=== PATIENT | male | born 1940 | race Caucasian/White ===

== ENCOUNTER → 2025-04-07 19:59 | Outpatient (CLI) | payer MEDICARE, SELFPAY ==
--- OUTSIDE RECORDS SUMMARY | 2025-04-07 20:04 | XMS_ITS | Data Portability ---
Author Organization [facility] Address [address] [place] [id number] Assessment No assessment recorded. Plan of Treatment Reminders Order Date Submit Date Provider Last Modified By Organization Details Last Modified Time Details Appointments None recorded. Lab None recorded. Referral None recorded. Procedures colonoscop y procedure (PROC) 2024 025 [facility] [address] [place] [address] [place], [address], 10:08:31 Surgeries None recorded. Imaging None recorded. Medication Orders Miralax 17 gram/dose oral powder 2024 025 [facility] Not available 09:53:50 Dulcolax (bisacodyl ) 5 mg tablet,del ayed release 2024 025 [facility] Not available 09:53:50 Patient TargetsNo targets recorded. Patient InstructionsNo instructions recorded. Reason for Referral None Reported. Results Created Date Observation Date Name Description Value Unit Range Abnormal Flag Note LastModifiedBy Organization Detail LastModifiedTime Result Notes None recorded. Problems Name Problem SNOMED Code Status Onset Date Resolution Date Notes Provider Name and Address Organization Details Recorded Time Colorectal cancer detected by DNA-based stool screening 841057341 Active 2024 Mikaela Singh NP [address], [address], [place], [address], [facility] & [place] 5 09:50:54 Chronic idiopathic constipation 94349802 Active 2024 Mikaela Singh NP [address], [address], [place], [address], [place] - [facility] - [place] & [place] 09:51:20 Gastroesophage al reflux disease 742569326 Active 2024 Mikaela Singh NP [address], [address], [place], [address], [place] - [facility] - [place] & [place] 09:51:31 Problem Notes None recorded. Procedures Surgical History Date Name Laterality Status Provider Name and Address Organization Details Recorded Time 11/05/19 Colonoscopy completed Frida Allen [place] - [facility] - [place] & [place] 11/25/2024 12:19:20 procedure on shoulder completed Marietta Monson [place] - [facility] - [place] & [place] 08/26/2024 14:25:00 appendectomy completed Marietta Josseline [place] - [facility] - [place] & [place] 08/26/2024 14:25:22 cholecystectomy completed Marietta Monson [place] - [facility] - [place] & [place] 08/26/2024 14:25:38 procedure on urinary bladder completed Marietta Josseline [place] - [facility] - [place] & [place] 08/26/2024 14:26:04 Back Surgery completed Marietta Monson [place] - [facility] - [place] & [place] 08/26/2024 14:26:21 colonoscopy completed Marietta Monson [place] - [facility] - [facility] & [place] 08/26/2024 14:26:58 colonoscopy completed Mikaela Singh NP [address], [address], [place], [address], [place] - [facility] - [place] & [place] 08/28/2024 09:54:45 Imaging Results None recorded. Procedure Notes None recorded. Medical Equipment None Reported. Allergies Allergen ID Allergen Name Allergen Category Reaction Reaction Severity Criticality Documentation Date Start Date Code Code System Note Provider Name and Address Organization Details Recorded Time 626017 sabine extract food,medi cation Not available Not available Not available 08/26/2024 68272 1 RxNorm Marietta Josseline null, [place] - [facility] - [place] & [place] 14:21:39 198873 Vaccine product containin g only Clostridi um tetani antigen (medicina l product) medicatio n Not available Not available Not available 08/26/2024 10463 2002 SNOMED Marietta Monson [facility], [place] - [facility] - [place] & [place] 14:22:01 Medications Name Sig Start Date Stop Date Status Note LastModified by Organization Details LastModified Time amantadine HCl 100 mg tablet Take 1 tablet twice a day by oral route. 08/26 completed Not Available Not Available Not Available atorvastati n 40 mg tablet TAKE 1 TABLET BY MOUTH IN THE EVENING active Not Available Not Available No t Available primidone 50 mg tablet TAKE 3 TABLETS BY MOUTH TWICE DAILY FOR TREMOR active Not Available Not Available No t Available doxycycline hyclate 100 mg capsule TAKE 1 CAPSULE BY MOUTH TWICE DAILY FOR 7 DAYS active Not Available Not Available No t Available carvedilol 12.5 mg tablet TAKE 1 TABLET BY MOUTH TWICE DAILY WITH MEALS active Not Available Not Available No t Available azithromyci n 250 mg tablet TAKE 2 TABLETS BY MOUTH ON DAY 1, AND THEN TAKE 1 TABLET BY MOUTH ONCE A DAY ON DAY 2 THROUGH DAY 5 08/26 completed Not Available Not Available Not Available lisinopril 20 mg tablet TAKE 1 TABLET BY MOUTH ONCE DAILY active Not Available Not Available No t Available ondansetron HCl 4 mg tablet TAKE 1 TABLET BY MOUTH EVERY 6 HOURS NEEDED FOR NAUSEA AND VOMITING active Not Available Not Available No t Available prednisone 20 mg tablet TAKE 1 TABLET BY MOUTH ONCE DAILY FOR 5 DAYS 08/26 completed Not Available Not Available Not Available sulfamethox azole 800 mg-trimetho prim 160 mg tablet TAKE 1 TABLET BY MOUTH TWICE DAILY FOR 10 DAYS active Not Available Not Available No t Available omeprazole 40 mg capsule,del ayed release TAKE 1 CAPSULE BY MOUTH ONCE DAILY active Not Available Not Available No t Available amantadine HCl 100 mg capsule TAKE 1 CAPSULE BY MOUTH TWICE DAILY active Not Available Not Available No t Available sildenafil 100 mg tablet TAKE 1/2 TO 1 (ONE-HALF TO ONE) TABLET BY MOUTH ONCE DAILY NEEDED FOR ERECTILE DYSFUNCTI ON active Not Available Not Available No t Available triamcinolo ne acetonide 0.1 % topical cream APPLY TOPICALLY TO RASH TWICE A DAY NEEDED active Not Available Not Available No t Available cephalexin 500 mg capsule TAKE 1 CAPSULE BY MOUTH EVERY 8 HOURS FOR 10 DAYS active Not Available Not Available No t Available pantoprazol e 40 mg tablet,toña yed release TAKE 1 TABLET BY MOUTH TWICE DAILY active Not Available Not Available No t Available Gentle Laxative (bisacodyl) 5 mg tablet,toña yed release TAKE 2 TABLETS BY MOUTH ONCE DAILY THE MORNING BEFORE YOUR PROCEDURE AT 9 AM DIRECTED FOR 1 DAY DIRECTED active Not Available Not Available No t Available montelukast 10 mg tablet TAKE 1 TABLET BY MOUTH ONCE DAILY AT NIGHT active Not Available Not Available No t Available mupirocin 2 % topical ointment APPLY OINTMENT TOPICALLY TO WOUND THREE TIMES DAILY NEEDED active Not Available Not Available No t Available polyethylen e glycol 3350 17 gram/dose oral powder MIX 10 CAPFULS OF POWDER IN 32 OUNCES OF GATORADE AND DRINK BY MOUTH AT 4 PM DAY BEFORE PROCEDURE , REPEAT AT 4 AM ON THE MORNING OF PROCEDURE DIRECTED active Not Available Not Available No t Available carbidopa 25 mg-levodopa 100 mg tablet TAKE 2 TABLETS BY MOUTH THREE TIMES DAILY active Not Available Not Available No t Available losartan 100 mg tablet TAKE 1 TABLET BY MOUTH ONCE DAILY active Not Available Not Available No t Available lubiproston e 24 mcg capsule TAKE 1 CAPSULE BY MOUTH TWICE DAILY WITH MEALS active Not Available Not Available No t Available pramipexole 0.75 mg tablet TAKE 1 TABLET BY MOUTH TWICE DAILY active Not Available Not Available No t Available Accu-Chek Dominique Plus test strips USE DIRECTED active Not Available Not Available No t Available Eliquis 5 mg tablet TAKE 1 TABLET BY MOUTH EVERY 12 HOURS FOR AFIB active Not Available Not Available No t Available Gocovri 137 mg capsule,ext ended release active Not Available Not Available Not Available Vitals Date Recorded Body height Body mass index (BMI) Body weight Body temperature Oxygen saturation Oxygen saturation in Arterial blood by Pulse oximetry Heart rate Provider Name and Address Organization Details Last Updated DateTime 5 175.26 cm 40.5 kg/m2 183719. 31 g 97.3 [degF] 95 % 95 % 100 /min Marietta Monson [place] - [place] - [place] & [place] 5 14:21:33 Social History None recorded. Functional Status Question Answer Note LastModified by Organizat ion Details LastModified Time Do you use any illicit or recreational drugs? No Information not available 08/26/2024 Do you or have you ever used any other forms of tobacco or nicotine? No Information not available 08/26/2024 What is your level of alcohol consumption? None Information not available 08/26/2024 Mental Status None recorded. Family History Relationship Description Onset Age of this Age Resolved Age Notes LastModified by Organization Details LastModified Time Mother Hypertensive disorder [email or web address] Not available 2024 14:23:29 Mother Cerebrovascu lar accident [email or web address] Not available 14:23:47 Sister Hypertensive disorder [email or web address] Not available 2024 14:23:29 Sister Diabetes mellitus [email or web address] Not available 2024 14:23:57 Unspecified Relation Cerebrovascu lar accident grandp arent unspec ified. ksnelling Not available 08/26/2024 14:23:47 Father Malignant neoplasm of colon ksnelling Not available 2024 14:24:08 Brother Heart disease ksnelling Not available 2024 14:24:16 Paternal Uncle Malignant neoplasm of colon [email or web address] Not available 2024 09:54:14 Medical History Condition Response Coronary Artery Disease N None N Gout N Colon Cancer N Kidney Stones N Hyperthyroidism N Depression N COPD N Hypothyroidism N Osteoporosis/Osteopenia N Diverticulitis/Diverticulosis N Colon Polyps Y Diabetes Y Anxiety Disorder N Bleeding Disorder N Seizures/Epilepsy N Arthritis Y Tuberculosis N Hyperlipidemia N Cancer N Stroke Y Asthma Y Sleep Apnea Y GERD/Reflux N Hepatitis N Liver Disease N Cirrhosis N Heart Disease N Hypertension Y Kidney Disease N Past Encounters Encounter ID Performer Location Encounter Start Date Encounter Closed Date Diagnosis/Indication Diagnosis SNOMED-CT Code Diagnosis ICD10 Code Diagnosis IMO Codes Diagnosis Note [id number] Mikaela Singh NP [facility] [address] [place] [phone] 08/26/2024 13:46:38 08/26/2024 14:40:48 Colorectal cancer detected by DNA-based stool screening 276560493 R19.5 4294198923 Positive Cologuard stool test from 03/2024. Denies hematochez ia, abdominal pain or change in bowel habits. Last colonoscop y 08/2015 was normal. He does have a history of colon polyps as well as family history colon cancer. Currently prescribed Eliquis due to history of paroxysmal atrial fibrillati on, following with Dr. Culp. Recommend colonoscop y to r/o underlying colon polyps, lesions, other after cardiac clearance has been obtained. Chronic id iopathic constipation 64902147 K59.04 8835 constipati on controlled with use of Amitiza 24 mcg b.i.d.. Gastroesop hageal reflux disease 946480495 K21.9 [id number] GERD remains well-contr olled with use of daily PPI. History of polyp of colon 666682198 Z86.0100 [id number] Personal history colon polyps. Family his tory of cancer of colon 929260744 Z80.0 [id number] Patient's father and paternal uncle with history colon cancer. Health Concerns Section Related Observation LastModified by Organization Detai ls LastModified Time None Recorded Concern Status LastModified by Organization Details LastModified Time None Recorded Advance Directives Directive None Recorded Payers Insurance Date Sequence Insurance Name Policy Number Policy [place] Covered Member ID [place] Member ID Guarantor Name 12/21/2023 1 [place] [id number] Leopoldo Casas [id number] Leopoldo Casas 11/27/2024 1 [place]MEDICARE [place]ACEMENT HMO) [id number] Leopoldo Casas [id number] Leopoldo Casas Notes Date Note Type Note Provider Name and Address Organization Details Recorded Time 08/26/2024 text/html 84-year-old male past medical history paroxysmal atrial fibrillation, VCA, Parkinson's, GERD, constipation, hypertension, hyperlipidemia, and colon polyps. Patient presents to clinic today for evaluation prior to screening colonoscopy. Positive Cologuard stool test 03/2024. He is prescribed Eliquis for history paroxysmal atrial fibrillation. He continues to follow with cardiology, Dr. Culp. Last colonoscopy 08/2015 was normal. Patient's father and paternal uncle with history of colon cancer. He reports controlled constipation with use of Amitiza. No hematochezia or abdominal pain. GERD is controlled with use of daily PPI. Mikaela Singh NP [address] [place] [address], [address], [place], [address], [place] - [facility] - [facility] 08/28/2024 09:56:14
--- OUTSIDE RECORDS SUMMARY | 2025-04-07 20:04 | XMS_ITS | CCD ---
Author Organization Unknown Care Team Providers Care Methods Analyst Data Processing Name Role Phone Unavailable Primary Care Provider Unavailabl e Unavailable Chronic Care Management Unavaila ble Summary Purpose DataExchange Insurance Providers Payer name Policy type / Coverage type Covered green party ID Effective Begin Date Effective End Date [facility] [id number] Unknown Unknown Family History Family History data not found Medication Administered No Medication Administered data Reason For Visit No Reason For Visit data Medical Equipment No Medical Equipment data Advance Directives No Advance Directive data
--- OUTSIDE RECORDS SUMMARY | 2025-04-07 20:05 | XMS_ITS | Data Portability ---
Author Organization [facility] DEJAN Vital LANNON CLOSED Address [address] [place] [address] Care Team Providers Care Shelter Director Name Role Phone NINFA SANDERS Primary Care Provider [phone] Assessment Encounter Date Assessment Date Assessment LastModified by Organization Details LastModified Time 09/05/2021 09/05/2021 DATE OF PROCEDUR E: 09/05/2021 PROCEDURE PERFORMED: Cystourethroscopy SURGEON: Diallo Vasquez M.D. ANESTHESIA: Local BLOOD LOSS: None PREOPERATIVE INDICATIONS: Hematuria POSTOPERATIVE INDICATIONS: Hematuria, Papillary bladder lesion DESCRIPTION OF PROCEDURE: Patient was correctly identified in preoperative holding area. Informed consent was obtained. Risks and benefits were reviewed with patient. Patient was taken to procedure room and positioned supine position. All pressure points padded. Proper timeout procedure completed. Genitourinary area prepped and draped in the normal sterile fashion. Lidocaine jelly instilled for local analgesia. Flexible cystoscope advanced through the urethra. A small papillary bladder lesion noted at bladder neck. Stone basket used to attempt to biopsy the area. Tissue removed but the base of lesion still present. Ureteral orifices in normal anatomic position. The urethra was without evidence of stricture or stenosis. The cystoscope was withdrawn atraumatically. Patient tolerated procedure well. DISPOSITION: Patient was taken to the recovery in stable condition. Discharged home with instructions for outpatient follow-up for completion of bladder biopsy. [email or web address] Not available 09/05/2021 14:07:21 09/19/2021 09/19/2021 DATE OF PROCEDUR E: 09/19/2021 PROCEDURE PERFORMED: Cystourethroscopy, bladder biopsy with cauterization of bleeding. SURGEON: Diallo Vasquez M.D. ANESTHESIA: MAC BLOOD LOSS: Minimal PREOPERATIVE INDICATIONS: Papillary bladder mass POSTOPERATIVE INDICATIONS: Papillary bladder mass DESCRIPTION OF PROCEDURE: Patient was correctly identified in preoperative holding area. Informed consent was obtained. Risks and benefits were reviewed with patient. Patient was taken to procedure room and positioned supine position. Anesthesia induced. Repositioned to lithotomy position. All pressure points padded. Proper timeout procedure completed. Genitourinary area prepped and draped in the normal sterile fashion. Cystoscope advanced through the urethra. Papillary bladder lesion noted at bladder neck. Rigid biopsy forceps used to removed lesion at stalk. Bugbee used to acheive hemostasis. Lidocaine gel was instilled for local analgesia. Patient tolerated procedure well. DISPOSITION: Patient was taken to the recovery in stable condition. Discharged home with instructions for outpatient follow-up. [email or web address] Not available 09/19/2021 13:45:23 10/26/2021 10/26/2021 Pathology review ed. Continue to monitor lower urinary symptoms. [email or web address] Not available 11/09/2021 08:44:39 08/21/2022 08/21/2022 History of Parkinson's disease, relatively stable but could use a slightly higher dose of Sinemet at this time I recommended increasing to 2 tablets 3 times a day, continuing Mirapex and continuing amantadine. Patient has had some difficulty with swallowing and I am hoping that a higher dose of Sinemet may be helpful for him. He also has some relatively new onset hip pain particular with weightbearing I would like to check x-rays and possibly see orthopedics in follow-up if need be. Otherwise regular routine follow-up with me in 6 months. Not available 08/21/2022 15:24:15 02/05/2023 02/05/2023 Longstanding history of Parkinson's disease that has been under good control with combination of amantadine, carbidopa levodopa and pramipexole. No signs of dyskinesias at this time, minimal resting tremor, but overall moving very well he has been on a relatively stable dose now for the last year, I would like to continue this with follow-up on a yearly basis. Have given himphone numbers of different neurologists in the area. He would like to follow-up closer to home. Have given him refills for a year supply of medication. Not available 02/05/2023 09:57:15 Plan of Treatment Reminders Order Date Submit Date Provider Last Modified By Organization Details Last Modified Time Details Appointments None recorded. Lab None recorded. Referral None recorded. Procedures None recorded. Surgeries None recorded. Imaging XR, hip, bilateral, 2 view 2022 023 [facility], [address] [place], [address], 07:57:35 Medication Orders carbidopa 25 mg-levodopa 100 mg tablet 2022 023 [facility], [facility] [employer] [place], [address], 09:59:33 amantadine HCl 100 mg capsule 2022 023 [facility] [address], [facility] [employer], [address], 09:59:32 pramipexole 0.75 mg tablet 2022 023 [facility], [facility] [employer], [address], 09:59:30 carbidopa 25 mg-levodopa 100 mg tablet 2022 023 [facility] [address], [facility] [employer] [place], [address], 15:27:19 Patient TargetsNo targets recorded. Patient Instructions Encounter Date Encounter Id Patient Instructions Last Modified By Organization Details Last Modified Time 10/26/2021 [id number] healthy together Not availa ble 11/09/2021 08:44:40 Reason for Referral None Reported. Results Created Date Observation Date Name Description Value Unit Range Abnormal Flag Note LastModifiedBy Organization Detail LastModifiedTime 09/06/19 22 09/05/2021 SURGI MARLEEN surgical SEE BELOW Depar tment of Patho logy Surgi marleen Patho logy Repor t NAME: CAROLYNE HIGUERA PATH. :SS-2 Copy to: Diagn osis: Bladd er biops y: Benig n, inver david uroth elial papil saran. COMME NT: The case is refer red for extra depar tment al consu ltati on, to Dr. Evy Michel in, and the above diagn osis is refle ctive of his opini on. SOURC E OF SPECI MEN: URINA RY BLADD ER BIOPS Y CLINI MARLEEN INFOR MATIO N: MICRO SCOPI C HEMAT URIA Gross Descr iptio n: Recei marli in forma ian label ed with the patie nt's name and desig nated as blad janice biops y are two fragm ents of red-t an tissu e measu ring 0.4 cm and 0.6 cm. Entir marzena submi tted in one casse tte. JAB 09/05 04:43 PM Micro scopi c Descr iptio n: Secti ons demon strat e areas with a alma ened to mildl y hyper plast ic surfa ce mucos a. There appea rs to be an inver david lesio n compo sed of nests of relat ively bland uroth elium with some centr al spind ling. Some cyst forma tion is also ident ified . The histo logic findi ngs are consi stent with a benig n inver david uroth elial papil saran. The case was refer red for extra depar tment al consu ltati on to Dr. Evy Michel in, and the above diagn osis is refle ctive of his opini on.. USAMA Hyman MD Ely d Out Date: 09/08 14:34 Page 1 of 1 Not Available [facility] [address] [facility], [place], [address], 09/08/2021 14:36:03 09/20/19 22 09/19/2021 SURGI MARLEEN surgical SEE BELOW Depar tment of Patho logy Surgi marleen Patho logy Repor t NAME: CAROLYNE HIGUERA PATH. :SS-2 [id number] Copy to: Diagn osis: Bladd er biops y: Benig n, inver david uroth elial papil saran. SOURC E OF SPECI MEN: BLADD ER, BIOPS Y CLINI MARLEEN INFOR MATIO N: C67.9 Gross Descr iptio n: Recei marli in forma ian label ed with the mary jo nt's name and desig nated as blad janice biops y is a singl e fragm ent of pink sanchez tissu e measu ring 1.0 cm. Entir marzena submi tted in one casse tte. JAB 09/19 04:23 PM Micro scopi c Descr iptio n: A micro scopi c exami natio n has been perfo rmed. Intra depar tment al consu ltati on is obtai gareth with diagn ostic agree ment. Prior biops y (SS - 009) is revie wed, and appea rs simil ar to the yaz nt speci men. USAMA Hyman MD Ely d Out Date: 09/20 17:04 Page 1 of 1 Not Available [facility] [address] [place] [address], [phone], 09/20/2021 17:06:03 09/20/19 22 09/19/2021 urina lysis panel , auto Unknown Analyte Clean Catch Not Available [facility] [address] [place] [address], [phone], 09/19/2021 12:56:38 09/20/19 22 09/19/2021 urina lysis panel , auto Unknown Analyte Camila Not Available [facility] [address] [place] [address], [phone], 09/19/2021 12:56:38 09/20/19 22 09/19/2021 urina lysis panel , auto Unknown Analyte Clear Not Available [facility] [address] [place] [address], [phone], 09/19/2021 12:56:38 09/20/19 22 09/19/2021 urina lysis panel , auto Unknown Analyte 1.[address] [facility] [address] [place] [address], [place], [address], 09/19/2021 12:56:38 09/20/19 22 09/19/2021 urina lysis panel , auto Unknown Analyte 1.003- 1.035 Not Available [facility] [address] [place] [address], [place], [address], 09/19/2021 12:56:38 09/20/19 22 09/19/2021 urina lysis panel , auto Unknown Analyte 6.[address] [facility] [address] [place] [address], [place], [address], 09/19/2021 12:56:38 09/20/19 22 09/19/2021 urina lysis panel , auto Unknown Analyte 5.0-8. 0 Not Available [facility] [address] [place] [address], [place], [address], 09/19/2021 12:56:38 09/20/19 22 09/19/2021 urina lysis panel , auto Unknown Analyte 75 Darci/ul (+) Not Available [facility] [address] [place] [address], [place], [address], 09/19/2021 12:56:38 09/20/19 22 09/19/2021 urina lysis panel , auto Unknown Analyte Negati ve Not Available [facility] [address] [place] [address], [phone], 09/19/2021 12:56:38 09/20/19 22 09/19/2021 urina lysis panel , auto Unknown Analyte Negati ve Not Available [facility] [address] [place] [address], [phone], 09/19/2021 12:56:38 09/20/19 22 09/19/2021 urina lysis panel , auto Unknown Analyte Negati ve Not Available [facility] [address] [place] [address], [place], [address], 09/19/2021 12:56:38 09/20/19 22 09/19/2021 urina lysis panel , auto Unknown Analyte Negati ve Not Available [facility] [address] [place] [address], [phone], 09/19/2021 12:56:38 09/20/19 22 09/19/2021 urina lysis panel , auto Unknown Analyte Negati ve Not Available [facility] [address] [place] [address], [phone], 09/19/2021 12:56:38 09/20/19 22 09/19/2021 urina lysis panel , auto Unknown Analyte Normal Not Available [facility] [address] [place] [address], [phone], 09/19/2021 12:56:38 09/20/19 22 09/19/2021 urina lysis panel , auto Unknown Analyte Normal Not Available [facility] [address] [place] [address], [phone], 09/19/2021 12:56:38 09/20/19 22 09/19/2021 urina lysis panel , auto Unknown Analyte Negati ve Not Available [facility] [address] [place] [address], [phone], 09/19/2021 12:56:38 09/20/19 22 09/19/2021 urina lysis panel , auto Unknown Analyte Negati ve Not Available [facility] [address] [place] [address], [phone], 09/19/2021 12:56:38 09/20/19 22 09/19/2021 urina lysis panel , auto Unknown Analyte 4 mg/dl Not Available [facility] [address] [place] [address], [phone], 09/19/2021 12:56:38 09/20/19 22 09/19/2021 urina lysis panel , auto Unknown Analyte Normal 1 mg/dl Not Available [facility] [address] [place] [address], [phone], 09/19/2021 12:56:38 09/20/19 22 09/19/2021 urina lysis panel , auto Unknown Analyte Negati ve Not Available [facility] [address] [place] [address], [phone], 09/19/2021 12:56:38 09/20/19 22 09/19/2021 urina lysis panel , auto Unknown Analyte Negati ve Not Available [facility] [address] [place] [address], [address], 09/19/2021 12:56:38 09/20/19 22 09/19/2021 urina lysis panel , auto Unknown Analyte 250 Jun/ul Not Available [facility] [address] [place] [address], [phone], 09/19/2021 12:56:38 09/20/19 22 09/19/2021 urina lysis panel , auto Unknown Analyte Negati ve Not Available [facility] [address] [place] [address], [phone], 09/19/2021 12:56:38 08/23/19 23 08/21/2022 XR, hip, bilat eral, [address] [address] [place] t Name: CAROLYNE QUIÑONEZMARY rosario : 944 Bryon rosario 0 Orderi ng Provid er: SHADY M ELIO EXAM DATE: 2022 EXAM: XR OSVALDO HIPS, 2 VWS COMPAR ESPERANZA: None. HISTOR Y: Bilate ral hip pain. FINDIN GS: There are mild degene rative change s in both hips. There is mild margin al spurri ng. The joint space appear s normal . There are mild degene rative change s in the SI joints . There is no acute fractu re. IMPRES NARAYAN: 1. There are mild degene rative change s in the hips and pelvis . Interp reted By: Saima raman MD Electr onical ly Signed By: Saima raman MD on 023 7:52 AM [email or web address] [facility] [address] [place] [address], [phone], 08/28/2022 11:25:25 Result Notes Documentation Provider Name and Address Organization Details Recorded Time Xr, Hip, Bilateral, 2 View : [place] [address] Patient Name: CAROLYNE FERGUSON Patient : 1940 Patient Ordering Provider: SHADY BALLARD EXAM DATE: 08/21/2022 EXAM: XR OSVALDO HIPS, 2 VWS COMPARISON: None. HISTORY: Bilateral hip pain. FINDINGS: There are mild degenerative changes in both hips. There is mild marginal spurring. The joint space appears normal. There are mild degenerative changes in the SI joints. There is no acute fracture. IMPRESSION: 1. There are mild degenerative changes in the hips and pelvis. Interpreted By: Americo Brantley MD Y BALLARD MD [address] [place] [address], [phone], [facility] 08/28/2022 11:25:25 Problems Name Problem SNOMED Code Status Onset Date Resolution Date Notes Provider Name and Address Organization Details Recorded Time Parkinson 's disease 25011867 Active 2015 From Automated Load;Provi janice: Jan Benoit;Stat us: Active Not Available [facility] 6 05:19:05 Problem Notes None recorded. Procedures Surgical History Date Name Laterality Status Provider Name and Address Organization Details Recorded Time 09/05/19 cystoscopy and cauterization of bladder completed Mahin [facility] 08/21/2022 15:01:40 Back Surgery completed Mariamjanetdavid [facility] 08/10/2021 19:41:22 Cholecystectomy [facility] 08/10/2021 19:41:27 Imaging Results None recorded. Procedure Notes None recorded. Medical Equipment None Reported. Allergies Allergen ID Allergen Name Allergen Category Reaction Reaction Severity Criticality Documentation Date Start Date Code Code System Note Provider Name and Address Organization Details Recorded Time 028703 sabine extract food,medi cation Not available Not available Not available 04/26/20162015 49403 1 RxNorm Ashley Erinn [facility] 3 09:07:39 433430 apple pectin food,medi cation Not available Not available Not available 04/27/20162015 33948 0 RxNorm Comme nt: Apple juice Ashley Erinn [facility] 3 09:07:48 893629 Tetanus Toxoid medicatio n Not available Not available Not available 04/27/20162015 Ashley Erinn [facility] 3 09:07:33 Medications Name Sig Start Date Stop Date Status Note LastModified by Organization Details LastModified Time Pravachol 40 mg tablet Daily 08/10 completed Frequen cy: daily;M edicati on Descrip tion: pravast atin; Dosage: 1; Route:o ral; refills :5; Quantit y:30 tablet Not Available Not Available Not Available amantadine HCl 100 mg tablet Take 1 tablet twice a day by oral route. active Not Available Not Available No t Available atorvastat in 40 mg tablet Take 1 tablet every day by oral route. active Not Available Not Available No t Available carvedilol 12.5 mg tablet Take 1 tablet twice a day by oral route. active Not Available Not Available No t Available lisinopril 20 mg tablet Daily 08/21 completed Duratio n: 30 days;Fr equency : daily;M edicati on Descrip tion: lisinop ril; Dosage: 1; Route:o ral; refills :5; Quantit y:30 tablet Not Available Not Available Not Available amlodipine 2.5 mg tablet Daily 08/10 completed Frequen cy: daily;M edicati on Descrip tion: amlodip ine; Dosage: 1; Route:o ral; refills :0 Not Available Not Available Not Available omeprazole 40 mg capsule,de layed release Take 1 capsule every day by oral route. active Not Available Not Available No t Available aspirin 81 mg tablet,del ayed release Daily 2021 active Frequen cy: daily;M edicati on Descrip tion: aspirin ; Dosage: 1; Route:o ral; refills :0 Not Available Not Available Not Available amantadine HCl 100 mg capsule Take 1 capsule twice a day 2022 active Not Available Not Available Not Avai lable furosemide 20 mg tablet Daily 08/10 completed Frequen cy: daily;A lt Frequen cy: prn;Med ication Descrip tion: furosem darren; Dosage: 1; Route:o ral; refills :0 Not Available Not Available Not Available carbidopa 25 mg-levodop a 100 mg tablet Take 2 tablets 3 times a day 2022 active Not Available Not Available Not Avai lable losartan 100 mg tablet Take 1 tablet every day by oral route. active Not Available Not Available No t Available loratadine 10 mg tablet Daily 08/10 completed Frequen cy: daily;A lt Frequen cy: prn;Med ication Descrip tion: loratad ine; Dosage: 1; Route:o ral; refills :0 Not Available Not Available Not Available carbidopa 25 mg-levodop a 100 mg disinte[address] ting tablet Place 2 tablets 4 times a day by translin gual route. 02/05 completed Not Available Not Available Not Available atorvastat in 08/21 completed Not Available Not Available Not Available Co Q-10 active Not Available Not Avail able Not Available omeprazole 08/21 completed Not Available Not Available Not Available Multivitam ins Daily 08/10 completed Duratio n: 30 days;Fr equency : daily;M edicati on Descrip tion: multivi tamin; Dosage: 1; refills :3; Quantit y:100 Not Available Not Available Not Available Vitamin D3 08/21 completed Not Available Not Available Not Available lubiprosto ne 24 mcg capsule Take 1 capsule twice a day by oral route. active Not Available Not Available No t Available lubiprosto ne 08/21 completed Not Available Not Available Not Available cholecalci ferol (vitamin D3) 25 mcg (1,000 unit) tablet Daily active Frequen cy: daily;M edicati on Descrip tion: choleca lcifero l; Dosage: 1; Route:o ral; refills :0 Not Available Not Available Not Available Neupro 4 mg/24 hour transderma l 24 hour patch Daily 08/10 completed Frequen cy: daily;M edicati on Descrip tion: rotigot ine; Dosage: 1; Route:t ransder mal; refills :0 Not Available Not Available Not Available pramipexol e 0.75 mg tablet Take 1 tablet twice a day by oral route for 90 days. 2022 active Not Available Not Available Not Avai lable Probiotic 10/26 completed Not Available Not Available Not Available Eliquis 5 mg tablet Take 1 tablet twice a day by oral route. active Not Available Not Available No t Available Eliquis 08/21 completed Not Available Not Available Not Available Gocovri 137 mg capsule,ex tended release active Not Available Not Available Not Available Vitals Date Recorded Body height Body mass index (BMI) Body weight Heart rate Respiratory rate Oxygen saturation Oxygen saturation in Arterial blood by Pulse oximetry Systolic And Diastolic Provider Name and Address Organization Details Last Updated DateTime 3 176.53 cm 42.8 kg/m2 182463. 86 g 97 /min 18 /min 97 % 97 % 120/80 mm[Hg] Frankreymundoaldo [facility] 3 15:04:34 Date Recorded Body height Body mass index (BMI) Body weight Provider Name and Address Organization Details Last Updated DateTime 10/26/2021 175.26 cm 39.1 kg/m2 394646.98 g Silvia Wanda [facility] 10/26/2021 13:34:14 Date Recorded Body height Body mass index (BMI) Body weight Heart rate Oxygen saturation Oxygen saturation in Arterial blood by Pulse oximetry Systolic And Diastolic Provider Name and Address Organization Details Last Updated DateTime 3 176.53 cm 42.8 kg/m2 936746. 86 g 76 /min 96 % 96 % 120/84 mm[Hg] Ashley Plasencia [facility] 3 09:10:59 Social History Question Answer Notes LastModified by Organizat ion Details LastModified Time Tobacco Smoking Status Never Smoker [facility] 08/10/2021 19:41:12 What Was The Date Of Your Most Recent Tobacco Screening? 02/05/2023 Information not available 02/05/2023 What Is Your Relationship Status? Information not available 08/10/2021 Sex: Unknown Functional Status Question Answer Note LastModified by Organizat ion Details LastModified Time Do you use any illicit or recreational drugs? No [email or web address] Information not available 08/21/2022 What is your level of alcohol consumption? None Information not available 08/10/2021 Are you currently employed? No Retired Information not available 02/05/2023 Mental Status None recorded. Family History Relationship Description Onset Age of this Age Resolved Age Notes LastModified by Organization Details LastModified Time Unspecified Relation Family history of malignant neoplasm [email or web address] Not available 2021 19:41:01 Medical History Condition Response False Teeth Y Hypertension Y Past Encounters Encounter ID Performer Location Encounter Start Date Encounter Closed Date Diagnosis/Indication Diagnosis SNOMED-CT Code Diagnosis ICD10 Code Diagnosis IMO Codes Diagnosis Note [id number] DIALLO VASQUEZ MD [facility] [address] [facility],[address] [place] [address] 08/10/2021 15:14:33 08/18/2021 07:28:15 Microscopic hematuria 500407167 R31.29 Cyst of kidney 278074741 N28.1 [id number] DIALLO VASQUEZ MD SURGERY SCHEDULE [address] [place] [address] 09/05/2021 12:16:43 09/05/2021 12:17:09 [id number] DIALLO VASQUEZ MD SURGERY SCHEDULE [address] [place] [address] 09/19/2021 12:00:41 09/19/2021 12:01:01 [id number] DIALLO VASQUEZ MD [facility] [address] [facility],[place] [address] 10/26/2021 13:33:31 11/09/2021 13:34:34 Blood in urine 78507413 R31.9 Mass of ur inary bladder 291459410 N32.89 [id number] SHADY BALLARD MD NEUROLOGY [facility] [address] [place] [address] 08/21/2022 14:44:04 08/22/2022 15:59:48 Parkinson's disease 12632892 G20 Pain of bi lateral hip joints 9503409227 0818258 M25.551 M25.552 [id number] SHADY BALLARD MD NEUROLOGY [facility] [address] [place] [address] 02/05/2023 08:28:41 02/07/2023 14:30:39 Parkinson's disease 93879618 G20 Health Concerns Section Related Observation LastModified by Organization Detai ls LastModified Time None Recorded Concern Status LastModified by Organization Details LastModified Time None Recorded Advance Directives Directive None Recorded Payers Insurance Date Sequence Insurance Name Policy Number Policy [place] Covered Member ID [place] Member ID Guarantor Name 09/05/2021 1 [place] [facility] Carolyne Ferguson [id number] Carolyne Ferguson 02/02/2023 1 [place]MEDIC[place] REPLACEMENT HMO) [id number] Carolyne Quiñonezrish [id number] Carolyne Ferguson Notes Date Note Type Note Provider Name and Address Organization Details Recorded Time 10/26/2021 text/html 81-year-old male in the office for follow-up evaluation after cystoscopy with bladder biopsy and hematuria. Pathology showed benign inverted urothelial papilloma. He voids 3-4 times daily without nocturia. No hematuria or dysuria currently. DIALLO VAQSUEZ MD [address] [place] [address], [phone], [facility] 11/09/2021 08:45:25 08/21/2022 text/html ROS as noted in the HPI 82-year-old gentleman with history of Parkinson's disease. He has been on a combination of Sinemet, Mirapex and amantadine and doing relatively well. At 1 point we had slightly too high of a dose of Sinemet and we ended up with significant dyskinesias, we have subsequently dropped his Sinemet to 2 tablets in the morning and 2 tablets at suppertime, unfortunately I see some increased tremulousness and some difficulty with movement. In addition he has had some swallowing difficulties, his barium swallow was consistent with findings associated with Parkinson's disease. patient also complains of low back pain particular with weightbearing, he feels the pain is more profound over both hip areas. SHADY BALLARD MD [address] [place] [address], [phone], [facility] 08/21/2022 15:27:26 02/05/2023 text/html ROS as noted in the HPI 83-year-old gentleman with history of Parkinson's disease, has been on a combination of amantadine 100 mg twice a day, carbidopa levodopa 25 over 100 2 tablets 3 times a day as well as pramipexole 0.75 mg twice a day. This combination seems to work fairly well for him. Overall he denies any significant problems, has been walking easily with a walker for longer distances, at home is able to walk without a walker. On long-term anticoagulation, but overall doing well, really no significant complaints. Tremor is under excellent control, with really no tremor noted with fine motor activity, minimal resting tremors noted. His facial expression is good, his eye blink is good as well. His recently had a knee replacement and he has been taking care of most of her needs while at home. SHADY BALLARD MD [address] [place] [address], [phone], [facility] 02/05/2023 09:59:28
== END ==
LOC: SL 20:02
PROVIDERS: PCP Internal Medicine; Visit Provider Specialist
DX: G47.33 Obstructive sleep apnea (adult) (pediatric) (principal)